=== PATIENT | male | born 1970 | race Two or more races ===

== ENCOUNTER 2023-01-29 08:14 | Inpatient (IN) | payer MEDICARE, MEDICAID ==
[~2023-01-29] VITALS: Ht 180.3 cm; Wt 178.6 kg
[2023-01-29] MEDS ORDERED: BUMETANIDE 0.25 MG/ML 4 ML VIAL IVP ONE (08:30)
[2023-01-29] MEDS ORDERED: NITROGLYCERIN 2% (1 GM=INCH) OINTMENT PACKET TP ONE (08:30)
[2023-01-29 08:54] LABS: BASOPHILS % (AUTO) 0.9 % (0.0-2.0); EOSINOPHILS % (AUTO) 1.4 % (1.0-6.0); HEMATOCRIT 37.4 % (41-53); HEMOGLOBIN 10.9 g/dL (13.5-17.5); LYMPHOCYTES # (AUTO) 0.9 K/uL (1.0-4.8); LYMPHOCYTES % (AUTO) 23.1 % (22.0-44.0); MEAN CORPUSCULAR HEMOGLOBIN 21.3 pg (26.0-34.0); MEAN CORPUSCULAR HGB CONC 29.1 G/dL (31.0-37.0); MEAN CORPUSCULAR VOLUME 73 fL (80-100); MONOCYTES # (AUTO) 0.2 K/uL (0.1-1.0); MONOCYTES % (AUTO) 6.2 % (2.0-9.0); NEUTROPHILS # (AUTO) 2.6 K/uL (1.8-7.7); NEUTROPHILS % (AUTO) 68.4 % (40.0-70.0); PLATELET COUNT (AUTO) 212 K/uL (150-450); RED BLOOD CELL COUNT(AUTO) 5.11 MIL/uL (4.50-5.90); RED CELL DISTRIBUTION WIDTH 20.2 % (11.5-14.5)
[2023-01-29 09:04] LABS: CALCIUM, TOTAL 9.2 mg/dL (8.8-10.5); CREATININE 2.74 mg/dL (0.60-1.30)
[2023-01-29 09:10] LABS: ALBUMIN 3.5 g/dL (3.4-5.0); BILIRUBIN,TOTAL 0.8 mg/dL (0.1-1.0); TOTAL PROTEIN, SERUM 7.7 g/dL (6.4-8.2)
[2023-01-29 09:30] LABS: INR 1.1 (0.9-1.1)
[2023-01-29] MEDS ORDERED: 0.9% SODIUM CHLORIDE 10 ML SYRINGE IVP PRN (09:45)
[2023-01-29] MEDS ORDERED: ACETAMINOPHEN 325 MG TABLET PO PRN (09:45)
[2023-01-29] MEDS ORDERED: ALBUTEROL SULFATE 2.5 MG/0.5 ML NEB SOLUTION NEB PRN (09:45)
[2023-01-29] MEDS ORDERED: IPRATROPIUM BROMIDE 0.5 MG/2.5 ML NEB SOLUTION NEB PRN (09:45)
[2023-01-29] MEDS ORDERED: BISACODYL 10 MG RECTAL RECTAL SUPPOSITORY PR PRN (09:45)
[2023-01-29] MEDS ORDERED: ONDANSETRON HCL 4 MG/2 ML VIAL IVP PRN (09:45)
[2023-01-29] MEDS ORDERED: ATOR20TA86 PO (09:58)
[2023-01-29] MEDS ORDERED: METO25XL PO (09:58)
[2023-01-29] MEDS ORDERED: POTA-79 PO (09:58)
[2023-01-29] MEDS ORDERED: AMIO200T68 PO (09:58)
[2023-01-29] MEDS ORDERED: SACU1TAB4 PO (09:58)
[2023-01-29] MEDS ORDERED: GABA-1181 PO (09:58)
[2023-01-29] MEDS ORDERED: FEBU40T PO (09:58)
[2023-01-29] MEDS ORDERED: EMPA10TA3 PO (09:58)
[2023-01-29] MEDS ORDERED: BUME1TAB34 PO (09:58)
[2023-01-29] MEDS ORDERED: FURO20 PO (09:58)
[2023-01-29] MEDS ORDERED: APIX5TAB PO (09:58)
[2023-01-29] MEDS ORDERED: NITROGLYCERIN 0.4 MG SUBLINGUAL TABLET #25 SL PRN (10:15)
[2023-01-29 10:22] LABS: HEMOGLOBIN A1C 6.8 % (3.8-5.6)
[2023-01-29 10:28] LABS: % IRON SATURATION 5.4 % (30-44)
[2023-01-29] MEDS: AMIODARONE HCL 200 MG TABLET PO SCH (10:45)
[2023-01-29] MEDS: APIXABAN 5 MG TABLET PO SCH ×2 (10:45→20:18)
[2023-01-29] MEDS: EMPAGLIFLOZIN 10 MG TABLET PO SCH (10:45)
[2023-01-29 10:52] LABS: APPEARANCE,URINE CLEAR (CLEAR); BILIRUBIN,URINE NEGATIVE (NEGATIVE); GLUCOSE, URINE (UA) NEGATIVE (NEGATIVE); KETONES,URINE NEGATIVE (NEGATIVE); LEUKOCYTE ESTERASE ,URINE NEGATIVE (NEGATIVE); NITRATE,URINE NEGATIVE (NEGATIVE); OCCULT BLOOD,URINE NEGATIVE (NEGATIVE); PH,URINE 5.5 (5.0-8.0); PROTEIN,URINE 100-200,SEE CONFIRM mg/dL (NEGATIVE); SPECIFIC GRAVITIY, URINE 1.012 (1.003-1.030); UROBILINOGEN,URINE <=1.0 mg/dL (<=1.0)
[2023-01-29 11:16] LABS: SULFOSALICYLIC ACID,URINE 3+ (Negative)
[2023-01-29 11:18] LABS: RBC,URINE None Seen /HPF (0-2); SQUAMOUS EPITHELIAL CELL,UR Rare /LPF (None Seen); WBC,URINE 0-2 /HPF (0-5)
[2023-01-29 11:19] LABS: BACTERIA,URINE Rare /HPF (None Seen)
[2023-01-29] MEDS ORDERED: BUMETANIDE 0.25 MG/ML 4 ML VIAL IVP SCH ×2 (16:00→21:00)
[2023-01-29 18:35] LABS: COVID AG,FIA SOURCE NASAL SWAB
[2023-01-29 18:59] VITALS: BP 129/72
[2023-01-29 19:36] VITALS: BP 138/85
[2023-01-29] MEDS: SACUBITRIL/VALSARTAN 24-26 MG TABLET PO SCH (20:17)
[2023-01-29] MEDS: HYDROCODONE/ACETAMINOPHEN 5-325 MG TABLET PO PRN (20:18)
[2023-01-29] MEDS: BUMETANIDE 0.25 MG/ML 4 ML VIAL IVP SCH (20:18)
[2023-01-29] MEDS: ATORVASTATIN CALCIUM 20 MG TABLET PO SCH (20:18)
[2023-01-29] MEDS ORDERED: FUROSEMIDE 40 MG/4 ML VIAL IVP SCH (21:00)
[2023-01-29] MEDS ORDERED: SODIUM CHLORIDE 0.9% 250 ML IV ONE (21:29)
[2023-01-29] MEDS: SOD FERRIC GLUC COMPLX/SUCROSE 125 MG in SODIUM CHLORIDE 0.9% 100 ML IV SCH (21:36)
[2023-01-30 00:08] VITALS: BP 152/88
[2023-01-30] MEDS: HYDROCODONE/ACETAMINOPHEN 5-325 MG TABLET PO PRN ×3 (01:04→22:58)
[2023-01-30 04:31] VITALS: BP 144/95
[2023-01-30] MEDS ORDERED: MORPHINE SULFATE 2 MG/ML SYRINGE IVP ONE (06:15)
[2023-01-30] MEDS ORDERED: PERFLUTREN PROTEIN-A MICROSPHERES 0.22 MG/ML 3 ML VIAL IVP ONE (08:30)
[2023-01-30] MEDS: AMIODARONE HCL 200 MG TABLET PO SCH (08:54)
[2023-01-30] MEDS: METOPROLOL SUCCINATE 25 MG ER TABLET PO SCH (08:54)
[2023-01-30] MEDS: APIXABAN 5 MG TABLET PO SCH ×2 (08:54→20:59)
[2023-01-30] MEDS: EMPAGLIFLOZIN 10 MG TABLET PO SCH (08:54)
[2023-01-30] MEDS: SACUBITRIL/VALSARTAN 24-26 MG TABLET PO SCH ×2 (08:54→20:59)
[2023-01-30] MEDS: BUMETANIDE 0.25 MG/ML 4 ML VIAL IVP SCH (08:54)
[2023-01-30 08:57] VITALS: BP 138/78
[2023-01-30 11:00] VITALS: BP 136/72
[2023-01-30 16:32] VITALS: BP 132/80
[2023-01-30] MEDS ORDERED: GABA-533 PO (17:14)
[2023-01-30] MEDS ORDERED: BUMETANIDE 10 MG in DEXTROSE 5%-WATER 60 ML IV SCH (17:15)
[2023-01-30 17:32] LABS: SODIUM,URINE RANDOM 48 mmol/l (20-110); UREA NITROGEN,URINE RANDOM 488 mg/dL (350-1000)
[2023-01-30 20:09] VITALS: BP 130/77
[2023-01-30] MEDS: SOD FERRIC GLUC COMPLX/SUCROSE 125 MG in SODIUM CHLORIDE 0.9% 100 ML IV SCH (20:59)
[2023-01-30] MEDS: ATORVASTATIN CALCIUM 20 MG TABLET PO SCH (21:00)
[2023-01-31 00:46] VITALS: BP 132/78
[2023-01-31 04:53] VITALS: BP 127/75
[2023-01-31 06:44] LABS: BASOPHILS % (AUTO) 0.7 % (0.0-2.0); EOSINOPHILS % (AUTO) 1.3 % (1.0-6.0); HEMATOCRIT 35.8 % (41-53); HEMOGLOBIN 10.7 g/dL (13.5-17.5); LYMPHOCYTES # (AUTO) 0.9 K/uL (1.0-4.8); MEAN CORPUSCULAR HEMOGLOBIN 21.6 pg (26.0-34.0); MEAN CORPUSCULAR HGB CONC 29.9 G/dL (31.0-37.0); MEAN CORPUSCULAR VOLUME 72 fL (80-100); MONOCYTES # (AUTO) 0.3 K/uL (0.1-1.0); MONOCYTES % (AUTO) 7.7 % (2.0-9.0); NEUTROPHILS # (AUTO) 2.9 K/uL (1.8-7.7); NEUTROPHILS % (AUTO) 69.3 % (40.0-70.0); PLATELET COUNT (AUTO) 198 K/uL (150-450); RED BLOOD CELL COUNT(AUTO) 4.97 MIL/uL (4.50-5.90); RED CELL DISTRIBUTION WIDTH 20.9 % (11.5-14.5)
[2023-01-31 07:23] LABS: ALBUMIN 3.2 g/dL (3.4-5.0); BILIRUBIN,TOTAL 1.1 mg/dL (0.1-1.0); CALCIUM, TOTAL 9.3 mg/dL (8.8-10.5); CHOL/HDL RATIO 3.4 (4.2-7.3); CREATININE 2.48 mg/dL (0.60-1.30); FREE T4 (FREE THYROXINE) 1.57 ng/dL (0.76-1.46); MAGNESIUM 2.2 mg/dL (1.80-2.40); PHOSPHORUS 4.5 mg/dL (2.5-4.9); POTASSIUM 3.4 mmol/L (3.5-5.1); THYROID STIMULATING HORMONE 0.72 uIU/mL (0.36-3.74); TOTAL PROTEIN, SERUM 7.1 g/dL (6.4-8.2)
[2023-01-31 09:00] VITALS: BP 132/72
[2023-01-31] MEDS: SACUBITRIL/VALSARTAN 24-26 MG TABLET PO SCH ×2 (09:28→20:19)
[2023-01-31] MEDS: HYDROCODONE/ACETAMINOPHEN 5-325 MG TABLET PO PRN ×2 (09:33→20:21)
[2023-01-31] MEDS: METOPROLOL SUCCINATE 25 MG ER TABLET PO SCH (09:34)
[2023-01-31] MEDS: AMIODARONE HCL 200 MG TABLET PO SCH (09:35)
[2023-01-31] MEDS: APIXABAN 5 MG TABLET PO SCH ×2 (09:36→20:19)
[2023-01-31] MEDS: EMPAGLIFLOZIN 25 MG TABLET PO SCH (09:36)
[2023-01-31] MEDS: SPIRONOLACTONE 25 MG TABLET PO SCH (10:03)
[2023-01-31] MEDS: POTASSIUM CHL 10 MEQ/WATER 50 ML IV SCH ×2 (10:48→12:21)
[2023-01-31 11:19] VITALS: BP 129/69
[2023-01-31 13:41] LABS: CALCIUM, TOTAL 9.2 mg/dL (8.8-10.5); CREATININE 2.27 mg/dL (0.60-1.30); POTASSIUM 3.8 mmol/L (3.5-5.1)
[2023-01-31] MEDS: BUMETANIDE 0.25 MG/ML 10 ML VIAL IVP SCH ×2 (15:59→23:27)
[2023-01-31 16:41] LABS: CREATININE,URINE RANDOM 44.4 mg/dL (30.0-125.0)
[2023-01-31 17:14] VITALS: BP 130/70
[2023-01-31] MEDS: ATORVASTATIN CALCIUM 20 MG TABLET PO SCH (20:19)
[2023-01-31] MEDS: SOD FERRIC GLUC COMPLX/SUCROSE 125 MG in SODIUM CHLORIDE 0.9% 100 ML IV SCH (20:20)
[2023-01-31 20:27] VITALS: BP 124/77
[2023-02-01] MEDS: HYDROCODONE/ACETAMINOPHEN 5-325 MG TABLET PO PRN ×4 (00:32→20:12)
[2023-02-01 00:34] VITALS: BP 125/74
[2023-02-01 05:21] VITALS: BP 104/64
[2023-02-01 07:45] VITALS: BP 149/80
[2023-02-01] MEDS: EMPAGLIFLOZIN 25 MG TABLET PO SCH (09:06)
[2023-02-01] MEDS: AMIODARONE HCL 200 MG TABLET PO SCH (09:06)
[2023-02-01] MEDS: APIXABAN 5 MG TABLET PO SCH ×2 (09:06→20:11)
[2023-02-01] MEDS: METOPROLOL SUCCINATE 25 MG ER TABLET PO SCH (09:07)
[2023-02-01] MEDS: SPIRONOLACTONE 25 MG TABLET PO SCH (09:07)
[2023-02-01] MEDS: SACUBITRIL/VALSARTAN 24-26 MG TABLET PO SCH ×2 (09:07→20:11)
[2023-02-01] MEDS: BUMETANIDE 0.25 MG/ML 10 ML VIAL IVP SCH ×2 (09:08→16:05)
[2023-02-01 11:17] VITALS: BP 110/63
[2023-02-01 12:53] LABS: BASOPHILS % (AUTO) 1.3 % (0.0-2.0); EOSINOPHILS % (AUTO) 1.3 % (1.0-6.0); HEMATOCRIT 38.8 % (41-53); HEMOGLOBIN 11.4 g/dL (13.5-17.5); LYMPHOCYTES # (AUTO) 1.3 K/uL (1.0-4.8); LYMPHOCYTES % (AUTO) 25.7 % (22.0-44.0); MEAN CORPUSCULAR HEMOGLOBIN 21.7 pg (26.0-34.0); MEAN CORPUSCULAR HGB CONC 29.4 G/dL (31.0-37.0); MEAN CORPUSCULAR VOLUME 74 fL (80-100); MONOCYTES # (AUTO) 0.3 K/uL (0.1-1.0); NEUTROPHILS # (AUTO) 3.2 K/uL (1.8-7.7); NEUTROPHILS % (AUTO) 64.7 % (40.0-70.0); PLATELET COUNT (AUTO) 201 K/uL (150-450); RED BLOOD CELL COUNT(AUTO) 5.26 MIL/uL (4.50-5.90); RED CELL DISTRIBUTION WIDTH 20.7 % (11.5-14.5)
[2023-02-01 13:12] LABS: CALCIUM, TOTAL 9.5 mg/dL (8.8-10.5); CREATININE 2.46 mg/dL (0.60-1.30); MAGNESIUM 2.6 mg/dL (1.80-2.40); PHOSPHORUS 4.3 mg/dL (2.5-4.9); POTASSIUM 3.8 mmol/L (3.5-5.1)
[2023-02-01 15:23] VITALS: BP 117/74
[2023-02-01] MEDS: ATORVASTATIN CALCIUM 20 MG TABLET PO SCH (20:11)
[2023-02-01] MEDS: GABAPENTIN 400 MG CAPSULE PO SCH (20:11)
[2023-02-01] MEDS: SOD FERRIC GLUC COMPLX/SUCROSE 125 MG in SODIUM CHLORIDE 0.9% 100 ML IV SCH (20:12)
[2023-02-01 21:30] VITALS: BP 119/66
[2023-02-02] MEDS: HYDROCODONE/ACETAMINOPHEN 5-325 MG TABLET PO PRN ×4 (00:14→21:13)
[2023-02-02] MEDS: BUMETANIDE 0.25 MG/ML 10 ML VIAL IVP SCH ×3 (00:14→21:12)
[2023-02-02 05:10] VITALS: BP 109/74
[2023-02-02 07:37] VITALS: BP 129/62
[2023-02-02 08:08] LABS: CALCIUM, TOTAL 9.6 mg/dL (8.8-10.5); CREATININE 2.58 mg/dL (0.60-1.30); POTASSIUM 3.5 mmol/L (3.5-5.1)
[2023-02-02] MEDS: EMPAGLIFLOZIN 25 MG TABLET PO SCH (09:23)
[2023-02-02] MEDS: METOPROLOL SUCCINATE 25 MG ER TABLET PO SCH (09:23)
[2023-02-02] MEDS: APIXABAN 5 MG TABLET PO SCH ×2 (09:23→21:12)
[2023-02-02] MEDS: SPIRONOLACTONE 25 MG TABLET PO SCH (09:23)
[2023-02-02] MEDS: FEBUXOSTAT 40 MG TABLET PO SCH (09:23)
[2023-02-02] MEDS: SACUBITRIL/VALSARTAN 24-26 MG TABLET PO SCH ×2 (09:23→21:12)
[2023-02-02] MEDS: AMIODARONE HCL 200 MG TABLET PO SCH (09:23)
[2023-02-02] MEDS: GABAPENTIN 400 MG CAPSULE PO SCH ×3 (09:23→21:12)
[2023-02-02 11:21] VITALS: BP 100/51
[2023-02-02 15:48] VITALS: BP 102/64
[2023-02-02] MEDS: DOCUSATE SODIUM 100 MG CAPSULE PO PRN (18:36)
[2023-02-02 19:50] VITALS: BP 102/64
[2023-02-02 20:31] LABS: APPEARANCE,URINE HAZY (CLEAR); BILIRUBIN,URINE NEGATIVE (NEGATIVE); GLUCOSE, URINE (UA) >=1000 mg/dL (NEGATIVE); KETONES,URINE NEGATIVE (NEGATIVE); LEUKOCYTE ESTERASE ,URINE MODERATE (NEGATIVE); NITRATE,URINE NEGATIVE (NEGATIVE); OCCULT BLOOD,URINE LARGE (NEGATIVE); PH,URINE 5.5 (5.0-8.0); PROTEIN,URINE 100-200,SEE CONFIRM mg/dL (NEGATIVE); SPECIFIC GRAVITIY, URINE 1.018 (1.003-1.030); UROBILINOGEN,URINE <=1.0 mg/dL (<=1.0)
[2023-02-02 20:46] LABS: SULFOSALICYLIC ACID,URINE 1+ (Negative)
[2023-02-02 20:47] LABS: RBC,URINE 51-100 /HPF (0-2)
[2023-02-02 20:48] LABS: BACTERIA,URINE None Seen /HPF (None Seen); SQUAMOUS EPITHELIAL CELL,UR None Seen /LPF (None Seen)
[2023-02-02] MEDS: SOD FERRIC GLUC COMPLX/SUCROSE 125 MG in SODIUM CHLORIDE 0.9% 100 ML IV SCH (21:12)
[2023-02-02] MEDS: ATORVASTATIN CALCIUM 20 MG TABLET PO SCH (21:12)
[2023-02-03 00:07] VITALS: BP 126/72
[2023-02-03] MEDS: HYDROCODONE/ACETAMINOPHEN 5-325 MG TABLET PO PRN ×5 (01:18→22:58)
[2023-02-03 04:00] VITALS: BP 149/64
[2023-02-03 07:05] VITALS: BP 101/70
[2023-02-03 07:35] LABS: CALCIUM, TOTAL 9.8 mg/dL (8.8-10.5); CREATININE 2.54 mg/dL (0.60-1.30); MAGNESIUM 2.4 mg/dL (1.80-2.40); PHOSPHORUS 5.1 mg/dL (2.5-4.9); POTASSIUM 3.7 mmol/L (3.5-5.1)
[2023-02-03] MEDS: APIXABAN 5 MG TABLET PO SCH ×2 (08:28→22:57)
[2023-02-03] MEDS: FEBUXOSTAT 40 MG TABLET PO SCH (08:28)
[2023-02-03] MEDS: SACUBITRIL/VALSARTAN 24-26 MG TABLET PO SCH ×2 (08:28→22:57)
[2023-02-03] MEDS: GABAPENTIN 400 MG CAPSULE PO SCH ×3 (08:29→22:57)
[2023-02-03] MEDS: EMPAGLIFLOZIN 25 MG TABLET PO SCH (08:29)
[2023-02-03] MEDS: METOPROLOL SUCCINATE 25 MG ER TABLET PO SCH (08:29)
[2023-02-03] MEDS: SPIRONOLACTONE 25 MG TABLET PO SCH (08:29)
[2023-02-03] MEDS: BUMETANIDE 0.25 MG/ML 10 ML VIAL IVP SCH ×2 (08:29→21:09)
[2023-02-03] MEDS: AMIODARONE HCL 200 MG TABLET PO SCH (08:29)
[2023-02-03 11:49] VITALS: BP 120/78
[2023-02-03 15:30] VITALS: BP 118/66
[2023-02-03 20:06] VITALS: BP 122/65
[2023-02-03] MEDS: SOD FERRIC GLUC COMPLX/SUCROSE 125 MG in SODIUM CHLORIDE 0.9% 100 ML IV SCH (21:08)
[2023-02-03] MEDS: CefTRIAXone 1 GM/DEXTROSE 50 ML IV SCH (22:57)
[2023-02-03] MEDS: ATORVASTATIN CALCIUM 20 MG TABLET PO SCH (22:58)
[2023-02-03] MEDS: DOXYCYCLINE HYCLATE 100 MG TABLET PO SCH (22:58)
[2023-02-04 00:09] VITALS: BP 125/68
[2023-02-04 05:37] VITALS: BP 107/69
[2023-02-04 06:06] LABS: ALBUMIN URINE (ELP) 53.9 %
[2023-02-04 07:28] LABS: CALCIUM, TOTAL 9.6 mg/dL (8.8-10.5); CREATININE 2.63 mg/dL (0.60-1.30); MAGNESIUM 2.4 mg/dL (1.80-2.40); PHOSPHORUS 5.3 mg/dL (2.5-4.9); POTASSIUM 4.1 mmol/L (3.5-5.1)
[2023-02-04 07:35] VITALS: BP 114/68
[2023-02-04] MEDS: SACUBITRIL/VALSARTAN 24-26 MG TABLET PO SCH ×2 (08:44→20:38)
[2023-02-04] MEDS: APIXABAN 5 MG TABLET PO SCH ×2 (08:44→20:38)
[2023-02-04] MEDS: SPIRONOLACTONE 25 MG TABLET PO SCH (08:44)
[2023-02-04] MEDS: METOPROLOL SUCCINATE 25 MG ER TABLET PO SCH (08:44)
[2023-02-04] MEDS: FEBUXOSTAT 40 MG TABLET PO SCH (08:44)
[2023-02-04] MEDS: AMIODARONE HCL 200 MG TABLET PO SCH (08:44)
[2023-02-04] MEDS: GABAPENTIN 400 MG CAPSULE PO SCH ×3 (08:44→20:39)
[2023-02-04] MEDS: DOXYCYCLINE HYCLATE 100 MG TABLET PO SCH ×2 (08:44→20:38)
[2023-02-04] MEDS: EMPAGLIFLOZIN 25 MG TABLET PO SCH (08:45)
[2023-02-04] MEDS: HYDROCODONE/ACETAMINOPHEN 5-325 MG TABLET PO PRN ×3 (08:45→20:39)
[2023-02-04] MEDS ORDERED: BUMETANIDE 0.25 MG/ML 10 ML VIAL IVP SCH (09:00)
[2023-02-04] MEDS: ALBUMIN HUMAN 25%-25GM/100ML 100 ML IV SCH ×3 (10:55→20:40)
[2023-02-04 11:40] VITALS: BP 129/79
[2023-02-04 15:52] VITALS: BP 125/73
[2023-02-04 19:22] VITALS: BP 113/67
[2023-02-04] MEDS: ATORVASTATIN CALCIUM 20 MG TABLET PO SCH (20:38)
[2023-02-04] MEDS: CefTRIAXone 1 GM/DEXTROSE 50 ML IV SCH (20:39)
[2023-02-04] MEDS: SOD FERRIC GLUC COMPLX/SUCROSE 125 MG in SODIUM CHLORIDE 0.9% 100 ML IV SCH (22:22)
[2023-02-05 00:12] VITALS: BP 105/69
[2023-02-05] MEDS: HYDROCODONE/ACETAMINOPHEN 5-325 MG TABLET PO PRN ×5 (00:42→22:20)
[2023-02-05] MEDS: ALBUMIN HUMAN 25%-25GM/100ML 100 ML IV SCH ×4 (03:20→22:11)
[2023-02-05 03:57] VITALS: BP 131/71
[2023-02-05 07:14] LABS: BASOPHILS % (AUTO) 0.6 % (0.0-2.0); EOSINOPHILS % (AUTO) 1.9 % (1.0-6.0); HEMATOCRIT 37.1 % (41-53); HEMOGLOBIN 11.4 g/dL (13.5-17.5); LYMPHOCYTES # (AUTO) 1.2 K/uL (1.0-4.8); LYMPHOCYTES % (AUTO) 25.9 % (22.0-44.0); MEAN CORPUSCULAR HEMOGLOBIN 22.8 pg (26.0-34.0); MEAN CORPUSCULAR HGB CONC 30.7 G/dL (31.0-37.0); MEAN CORPUSCULAR VOLUME 74 fL (80-100); MONOCYTES # (AUTO) 0.4 K/uL (0.1-1.0); MONOCYTES % (AUTO) 8.5 % (2.0-9.0); NEUTROPHILS % (AUTO) 63.1 % (40.0-70.0); PLATELET COUNT (AUTO) 161 K/uL (150-450); RED CELL DISTRIBUTION WIDTH 21.1 % (11.5-14.5)
[2023-02-05 07:28] LABS: CALCIUM, TOTAL 9.7 mg/dL (8.8-10.5); CREATININE 2.71 mg/dL (0.60-1.30); MAGNESIUM 2.6 mg/dL (1.80-2.40); POTASSIUM 3.9 mmol/L (3.5-5.1)
[2023-02-05 07:49] VITALS: BP 122/70
[2023-02-05] MEDS: SPIRONOLACTONE 25 MG TABLET PO SCH (08:34)
[2023-02-05] MEDS: APIXABAN 5 MG TABLET PO SCH ×2 (08:34→21:18)
[2023-02-05] MEDS: SACUBITRIL/VALSARTAN 24-26 MG TABLET PO SCH ×2 (08:34→21:16)
[2023-02-05] MEDS: GABAPENTIN 400 MG CAPSULE PO SCH ×3 (08:35→21:17)
[2023-02-05] MEDS: AMIODARONE HCL 200 MG TABLET PO SCH (08:35)
[2023-02-05] MEDS: EMPAGLIFLOZIN 25 MG TABLET PO SCH (08:35)
[2023-02-05] MEDS: METOPROLOL SUCCINATE 25 MG ER TABLET PO SCH (08:36)
[2023-02-05] MEDS: FEBUXOSTAT 40 MG TABLET PO SCH (08:36)
[2023-02-05] MEDS: DOXYCYCLINE HYCLATE 100 MG TABLET PO SCH ×2 (08:36→21:16)
[2023-02-05 11:40] VITALS: BP 117/72
[2023-02-05] MEDS ORDERED: SODIUM CL IRRIG SOLN BOTTLE 250 ML IRRIG ONE (11:50)
[2023-02-05] MEDS ORDERED: SODIUM CHLORIDE 0.9% 250 ML IV ONE ×2 (15:39→21:23)
[2023-02-05 16:16] VITALS: BP 126/76
[2023-02-05 21:08] VITALS: BP 109/71
[2023-02-05] MEDS: NYSTATIN 15 GM POWDER BOTTLE TP SCH (21:17)
[2023-02-05] MEDS: ATORVASTATIN CALCIUM 20 MG TABLET PO SCH (21:18)
[2023-02-05] MEDS: CefTRIAXone 1 GM/DEXTROSE 50 ML IV SCH (21:19)
[2023-02-05] MEDS: SOD FERRIC GLUC COMPLX/SUCROSE 125 MG in SODIUM CHLORIDE 0.9% 100 ML IV SCH (23:30)
[2023-02-06] VITALS (7 sets, daily range): BP systolic 106–123; BP diastolic 62–74
[2023-02-06] MEDS: ALBUMIN HUMAN 25%-25GM/100ML 100 ML IV SCH (03:41)
[2023-02-06] MEDS: HYDROCODONE/ACETAMINOPHEN 5-325 MG TABLET PO PRN ×4 (05:15→23:23)
[2023-02-06] MEDS: AMIODARONE HCL 200 MG TABLET PO SCH (08:26)
[2023-02-06] MEDS: FEBUXOSTAT 40 MG TABLET PO SCH (08:29)
[2023-02-06] MEDS: SACUBITRIL/VALSARTAN 24-26 MG TABLET PO SCH ×2 (08:29→20:39)
[2023-02-06] MEDS: SPIRONOLACTONE 25 MG TABLET PO SCH (08:29)
[2023-02-06] MEDS: DOCUSATE SODIUM 100 MG CAPSULE PO PRN (08:30)
[2023-02-06] MEDS: EMPAGLIFLOZIN 25 MG TABLET PO SCH (08:30)
[2023-02-06] MEDS: DOXYCYCLINE HYCLATE 100 MG TABLET PO SCH ×2 (08:30→20:39)
[2023-02-06] MEDS: METOPROLOL SUCCINATE 25 MG ER TABLET PO SCH (08:30)
[2023-02-06] MEDS: APIXABAN 5 MG TABLET PO SCH ×2 (08:30→20:39)
[2023-02-06] MEDS: NYSTATIN 15 GM POWDER BOTTLE TP SCH ×2 (08:35→20:39)
[2023-02-06] MEDS: GABAPENTIN 400 MG CAPSULE PO SCH ×3 (08:59→20:39)
[2023-02-06 11:43] LABS: BASOPHILS % (AUTO) 0.7 % (0.0-2.0); EOSINOPHILS % (AUTO) 2.8 % (1.0-6.0); HEMATOCRIT 34.3 % (41-53); HEMOGLOBIN 10.3 g/dL (13.5-17.5); LYMPHOCYTES # (AUTO) 1.3 K/uL (1.0-4.8); LYMPHOCYTES % (AUTO) 29.7 % (22.0-44.0); MEAN CORPUSCULAR HEMOGLOBIN 22.6 pg (26.0-34.0); MEAN CORPUSCULAR HGB CONC 30.1 G/dL (31.0-37.0); MEAN CORPUSCULAR VOLUME 75 fL (80-100); MONOCYTES # (AUTO) 0.3 K/uL (0.1-1.0); MONOCYTES % (AUTO) 6.5 % (2.0-9.0); NEUTROPHILS # (AUTO) 2.7 K/uL (1.8-7.7); NEUTROPHILS % (AUTO) 60.3 % (40.0-70.0); PLATELET COUNT (AUTO) 138 K/uL (150-450); RED BLOOD CELL COUNT(AUTO) 4.57 MIL/uL (4.50-5.90); RED CELL DISTRIBUTION WIDTH 21.8 % (11.5-14.5)
[2023-02-06] MEDS ORDERED: SODIUM CHLORIDE 0.9% 250 ML IV ONE (12:36)
[2023-02-06 13:16] LABS: CALCIUM, TOTAL 9.9 mg/dL (8.8-10.5); CREATININE 3.08 mg/dL (0.60-1.30); POTASSIUM 4.2 mmol/L (3.5-5.1)
[2023-02-06 13:22] LABS: ALBUMIN 4.6 g/dL (3.4-5.0); BILIRUBIN,TOTAL 0.8 mg/dL (0.1-1.0); MAGNESIUM 2.8 mg/dL (1.80-2.40); PHOSPHORUS 5.4 mg/dL (2.5-4.9); TOTAL PROTEIN, SERUM 8.3 g/dL (6.4-8.2)
[2023-02-06] MEDS: CefTRIAXone 1 GM/DEXTROSE 50 ML IV SCH (20:38)
[2023-02-06] MEDS: ATORVASTATIN CALCIUM 20 MG TABLET PO SCH (20:39)
[2023-02-06] MEDS: SOD FERRIC GLUC COMPLX/SUCROSE 125 MG in SODIUM CHLORIDE 0.9% 100 ML IV SCH (23:24)
[2023-02-07 05:31] VITALS: BP 123/75
[2023-02-07] MEDS: HYDROCODONE/ACETAMINOPHEN 5-325 MG TABLET PO PRN ×3 (06:44→20:54)
[2023-02-07 07:29] LABS: BASOPHILS % (AUTO) 0.6 % (0.0-2.0); EOSINOPHILS % (AUTO) 1.9 % (1.0-6.0); HEMATOCRIT 34.6 % (41-53); HEMOGLOBIN 10.4 g/dL (13.5-17.5); LYMPHOCYTES # (AUTO) 1.3 K/uL (1.0-4.8); LYMPHOCYTES % (AUTO) 27.6 % (22.0-44.0); MEAN CORPUSCULAR HEMOGLOBIN 22.5 pg (26.0-34.0); MEAN CORPUSCULAR VOLUME 75 fL (80-100); MONOCYTES # (AUTO) 0.3 K/uL (0.1-1.0); MONOCYTES % (AUTO) 7.5 % (2.0-9.0); NEUTROPHILS # (AUTO) 2.8 K/uL (1.8-7.7); NEUTROPHILS % (AUTO) 62.4 % (40.0-70.0); PLATELET COUNT (AUTO) 142 K/uL (150-450); RED BLOOD CELL COUNT(AUTO) 4.61 MIL/uL (4.50-5.90); RED CELL DISTRIBUTION WIDTH 21.5 % (11.5-14.5)
[2023-02-07 07:48] LABS: ALBUMIN 4.4 g/dL (3.4-5.0); BILIRUBIN,TOTAL 0.8 mg/dL (0.1-1.0); CALCIUM, TOTAL 9.8 mg/dL (8.8-10.5); CREATININE 3.3 mg/dL (0.60-1.30); POTASSIUM 4.2 mmol/L (3.5-5.1); TOTAL PROTEIN, SERUM 8.1 g/dL (6.4-8.2)
[2023-02-07 08:00] VITALS: BP 138/65
[2023-02-07] MEDS: DOXYCYCLINE HYCLATE 100 MG TABLET PO SCH ×2 (09:12→20:53)
[2023-02-07] MEDS: METOPROLOL SUCCINATE 25 MG ER TABLET PO SCH (09:12)
[2023-02-07] MEDS: SPIRONOLACTONE 25 MG TABLET PO SCH (09:12)
[2023-02-07] MEDS: GABAPENTIN 400 MG CAPSULE PO SCH ×2 (09:12→15:50)
[2023-02-07] MEDS: AMIODARONE HCL 200 MG TABLET PO SCH (09:12)
[2023-02-07] MEDS: EMPAGLIFLOZIN 25 MG TABLET PO SCH (09:12)
[2023-02-07] MEDS: SACUBITRIL/VALSARTAN 24-26 MG TABLET PO SCH ×2 (09:12→20:53)
[2023-02-07] MEDS: APIXABAN 5 MG TABLET PO SCH ×2 (09:12→20:53)
[2023-02-07] MEDS: FEBUXOSTAT 40 MG TABLET PO SCH (09:12)
[2023-02-07] MEDS: NYSTATIN 15 GM POWDER BOTTLE TP SCH ×2 (09:15→21:00)
[2023-02-07 11:05] VITALS: BP 120/77
[2023-02-07 16:04] VITALS: BP 129/56
[2023-02-07 20:00] VITALS: BP 102/64
[2023-02-07] MEDS: BUMETANIDE 0.25 MG/ML 4 ML VIAL IVP SCH (20:52)
[2023-02-07] MEDS: CefTRIAXone 1 GM/DEXTROSE 50 ML IV SCH (20:52)
[2023-02-07] MEDS: ATORVASTATIN CALCIUM 20 MG TABLET PO SCH (20:53)
[2023-02-07] MEDS: GABAPENTIN 300 MG CAPSULE PO SCH (20:54)
[2023-02-07] MEDS: SOD FERRIC GLUC COMPLX/SUCROSE 125 MG in SODIUM CHLORIDE 0.9% 100 ML IV SCH (23:07)
[2023-02-08] VITALS: BP 105/63
[2023-02-08] MEDS: HYDROCODONE/ACETAMINOPHEN 5-325 MG TABLET PO PRN ×4 (04:23→20:17)
[2023-02-08 04:57] VITALS: BP 124/64
[2023-02-08 06:46] LABS: BASOPHILS % (AUTO) 0.7 % (0.0-2.0); EOSINOPHILS % (AUTO) 1.3 % (1.0-6.0); HEMATOCRIT 32.7 % (41-53); LYMPHOCYTES # (AUTO) 1.4 K/uL (1.0-4.8); LYMPHOCYTES % (AUTO) 23.6 % (22.0-44.0); MEAN CORPUSCULAR HEMOGLOBIN 23.2 pg (26.0-34.0); MEAN CORPUSCULAR HGB CONC 30.5 G/dL (31.0-37.0); MEAN CORPUSCULAR VOLUME 76 fL (80-100); MONOCYTES # (AUTO) 0.7 K/uL (0.1-1.0); NEUTROPHILS # (AUTO) 3.6 K/uL (1.8-7.7); NEUTROPHILS % (AUTO) 62.4 % (40.0-70.0); PLATELET COUNT (AUTO) 137 K/uL (150-450); RED BLOOD CELL COUNT(AUTO) 4.31 MIL/uL (4.50-5.90); RED CELL DISTRIBUTION WIDTH 21.9 % (11.5-14.5)
[2023-02-08 07:04] LABS: ALBUMIN 4.2 g/dL (3.4-5.0); CALCIUM, TOTAL 9.7 mg/dL (8.8-10.5); CREATININE 3.44 mg/dL (0.60-1.30); POTASSIUM 4.8 mmol/L (3.5-5.1); TOTAL PROTEIN, SERUM 7.9 g/dL (6.4-8.2)
[2023-02-08 07:52] LABS: MAGNESIUM 2.8 mg/dL (1.80-2.40); PHOSPHORUS 5.6 mg/dL (2.5-4.9)
[2023-02-08 08:00] VITALS: BP 123/65
[2023-02-08] MEDS: METOPROLOL SUCCINATE 25 MG ER TABLET PO SCH (08:54)
[2023-02-08] MEDS: AMIODARONE HCL 200 MG TABLET PO SCH (08:55)
[2023-02-08] MEDS: SACUBITRIL/VALSARTAN 24-26 MG TABLET PO SCH ×2 (08:55→20:45)
[2023-02-08] MEDS: DOXYCYCLINE HYCLATE 100 MG TABLET PO SCH ×2 (08:55→20:45)
[2023-02-08] MEDS: EMPAGLIFLOZIN 25 MG TABLET PO SCH (08:55)
[2023-02-08] MEDS: APIXABAN 5 MG TABLET PO SCH ×2 (08:55→20:45)
[2023-02-08] MEDS: SPIRONOLACTONE 25 MG TABLET PO SCH (08:56)
[2023-02-08] MEDS: GABAPENTIN 300 MG CAPSULE PO SCH ×2 (08:56→20:45)
[2023-02-08] MEDS: FEBUXOSTAT 40 MG TABLET PO SCH (08:56)
[2023-02-08] MEDS: BUMETANIDE 0.25 MG/ML 4 ML VIAL IVP SCH ×3 (08:57→20:45)
[2023-02-08] MEDS: NYSTATIN 15 GM POWDER BOTTLE TP SCH ×2 (08:57→20:46)
[2023-02-08 11:38] VITALS: BP 101/69
[2023-02-08 16:00] VITALS: BP 111/66
[2023-02-08 20:00] VITALS: BP 115/68
[2023-02-08] MEDS: CefTRIAXone 1 GM/DEXTROSE 50 ML IV SCH (20:45)
[2023-02-08] MEDS: ATORVASTATIN CALCIUM 20 MG TABLET PO SCH (20:46)
[2023-02-09] VITALS: BP 117/67
[2023-02-09] MEDS: SOD FERRIC GLUC COMPLX/SUCROSE 125 MG in SODIUM CHLORIDE 0.9% 100 ML IV SCH ×2 (00:31→23:51)
[2023-02-09] MEDS: HYDROCODONE/ACETAMINOPHEN 5-325 MG TABLET PO PRN ×4 (00:32→20:07)
[2023-02-09 04:00] VITALS: BP 126/62
[2023-02-09] MEDS ORDERED: SODIUM CHLORIDE 0.9% 500 ML IV ONE (05:53)
[2023-02-09 08:10] VITALS: BP 123/77
[2023-02-09] MEDS: NYSTATIN 15 GM POWDER BOTTLE TP SCH ×2 (09:00→20:09)
[2023-02-09] MEDS: SPIRONOLACTONE 25 MG TABLET PO SCH (09:36)
[2023-02-09] MEDS: BUMETANIDE 0.25 MG/ML 4 ML VIAL IVP SCH ×3 (09:36→20:07)
[2023-02-09] MEDS: APIXABAN 5 MG TABLET PO SCH ×2 (09:36→20:07)
[2023-02-09] MEDS: SACUBITRIL/VALSARTAN 24-26 MG TABLET PO SCH ×2 (09:37→20:07)
[2023-02-09] MEDS: EMPAGLIFLOZIN 25 MG TABLET PO SCH (09:37)
[2023-02-09] MEDS: GABAPENTIN 300 MG CAPSULE PO SCH ×2 (09:38→20:07)
[2023-02-09] MEDS: AMIODARONE HCL 200 MG TABLET PO SCH (09:38)
[2023-02-09] MEDS: FEBUXOSTAT 40 MG TABLET PO SCH (09:39)
[2023-02-09] MEDS: DOXYCYCLINE HYCLATE 100 MG TABLET PO SCH ×2 (09:39→20:07)
[2023-02-09] MEDS: METOPROLOL SUCCINATE 25 MG ER TABLET PO SCH (09:39)
[2023-02-09] MEDS ORDERED: METOLAZONE 2.5 MG TABLET PO ONE (10:15)
[2023-02-09 11:10] VITALS: BP 127/85
[2023-02-09 16:00] VITALS: BP 112/66
[2023-02-09 20:00] VITALS: BP 117/88
[2023-02-09] MEDS: CefTRIAXone 1 GM/DEXTROSE 50 ML IV SCH (20:06)
[2023-02-09] MEDS: ATORVASTATIN CALCIUM 20 MG TABLET PO SCH (20:07)
[2023-02-10] MEDS: HYDROCODONE/ACETAMINOPHEN 5-325 MG TABLET PO PRN ×4 (02:48→20:13)
[2023-02-10 04:00] VITALS: BP 111/76
[2023-02-10 07:33] VITALS: BP 106/65
[2023-02-10] MEDS: FEBUXOSTAT 40 MG TABLET PO SCH (08:18)
[2023-02-10] MEDS: DOXYCYCLINE HYCLATE 100 MG TABLET PO SCH ×2 (08:18→20:11)
[2023-02-10] MEDS: SACUBITRIL/VALSARTAN 24-26 MG TABLET PO SCH ×2 (08:19→20:11)
[2023-02-10] MEDS: AMIODARONE HCL 200 MG TABLET PO SCH (08:19)
[2023-02-10] MEDS: BUMETANIDE 0.25 MG/ML 4 ML VIAL IVP SCH ×3 (08:19→20:12)
[2023-02-10] MEDS: GABAPENTIN 300 MG CAPSULE PO SCH ×2 (08:19→20:11)
[2023-02-10] MEDS: EMPAGLIFLOZIN 25 MG TABLET PO SCH (08:19)
[2023-02-10] MEDS: METOPROLOL SUCCINATE 25 MG ER TABLET PO SCH (08:19)
[2023-02-10] MEDS: APIXABAN 5 MG TABLET PO SCH ×2 (08:19→20:11)
[2023-02-10] MEDS: NYSTATIN 15 GM POWDER BOTTLE TP SCH ×2 (09:00→20:11)
[2023-02-10 11:52] VITALS: BP 109/74
[2023-02-10] MEDS ORDERED: METOLAZONE 5 MG TABLET PO ONE (12:15)
[2023-02-10 12:31] LABS: GLUCOMETER DEV NAME(LOC) 5N.1C; GLUCOSE,POINT OF CARE 106 MG/DL (70-110)
[2023-02-10 16:20] VITALS: BP 123/60
[2023-02-10 20:10] VITALS: BP 112/75
[2023-02-10] MEDS: ATORVASTATIN CALCIUM 20 MG TABLET PO SCH (20:11)
[2023-02-10] MEDS: CefTRIAXone 1 GM/DEXTROSE 50 ML IV SCH (20:11)
[2023-02-10] MEDS: SOD FERRIC GLUC COMPLX/SUCROSE 125 MG in SODIUM CHLORIDE 0.9% 100 ML IV SCH (23:32)
[2023-02-11 00:08] VITALS: BP 101/61
[2023-02-11] MEDS: HYDROCODONE/ACETAMINOPHEN 5-325 MG TABLET PO PRN (00:29)
[2023-02-11 04:10] VITALS: BP 108/66
[2023-02-11 08:19] VITALS: BP 102/60
[2023-02-11] MEDS ORDERED: METOLAZONE 2.5 MG TABLET PO SCH (08:30)
[2023-02-11] MEDS: GABAPENTIN 300 MG CAPSULE PO SCH ×2 (08:45→20:04)
[2023-02-11] MEDS: METOPROLOL SUCCINATE 25 MG ER TABLET PO SCH (08:45)
[2023-02-11] MEDS: FEBUXOSTAT 40 MG TABLET PO SCH (08:45)
[2023-02-11] MEDS: APIXABAN 5 MG TABLET PO SCH ×2 (08:46→20:04)
[2023-02-11] MEDS: DOXYCYCLINE HYCLATE 100 MG TABLET PO SCH ×2 (08:46→20:04)
[2023-02-11] MEDS: AMIODARONE HCL 200 MG TABLET PO SCH (08:46)
[2023-02-11] MEDS: SACUBITRIL/VALSARTAN 24-26 MG TABLET PO SCH ×2 (08:46→20:04)
[2023-02-11] MEDS: BUMETANIDE 0.25 MG/ML 4 ML VIAL IVP SCH ×2 (08:46→15:15)
[2023-02-11] MEDS: EMPAGLIFLOZIN 25 MG TABLET PO SCH (08:46)
[2023-02-11] MEDS: NYSTATIN 15 GM POWDER BOTTLE TP SCH ×2 (08:50→20:04)
[2023-02-11 09:26] LABS: EOSINOPHILS % (AUTO) 1.5 % (1.0-6.0); HEMATOCRIT 34.9 % (41-53); HEMOGLOBIN 10.4 g/dL (13.5-17.5); LYMPHOCYTES % (AUTO) 23.4 % (22.0-44.0); MEAN CORPUSCULAR HEMOGLOBIN 23.2 pg (26.0-34.0); MEAN CORPUSCULAR VOLUME 77 fL (80-100); MONOCYTES # (AUTO) 0.2 K/uL (0.1-1.0); MONOCYTES % (AUTO) 3.7 % (2.0-9.0); NEUTROPHILS # (AUTO) 3.1 K/uL (1.8-7.7); NEUTROPHILS % (AUTO) 70.4 % (40.0-70.0); PLATELET COUNT (AUTO) 153 K/uL (150-450); RED BLOOD CELL COUNT(AUTO) 4.51 MIL/uL (4.50-5.90); RED CELL DISTRIBUTION WIDTH 23.2 % (11.5-14.5)
[2023-02-11 09:34] LABS: CALCIUM, TOTAL 9.8 mg/dL (8.8-10.5); CREATININE 3.98 mg/dL (0.60-1.30); POTASSIUM 4.6 mmol/L (3.5-5.1)
[2023-02-11] MEDS ORDERED: HYDROmorphone HCL 2 MG/ML SYRINGE IM ONE (10:15)
[2023-02-11] MEDS ORDERED: HYDROmorphone HCL 2 MG/ML SYRINGE IVP ONE (11:30)
[2023-02-11 12:00] VITALS: BP 100/64
[2023-02-11 16:00] VITALS: BP 110/58
[2023-02-11 20:04] VITALS: BP 105/54
[2023-02-11] MEDS: CefTRIAXone 1 GM/DEXTROSE 50 ML IV SCH (20:04)
[2023-02-11] MEDS: ATORVASTATIN CALCIUM 20 MG TABLET PO SCH (20:04)
[2023-02-11] MEDS: SOD FERRIC GLUC COMPLX/SUCROSE 125 MG in SODIUM CHLORIDE 0.9% 100 ML IV SCH (23:06)
[2023-02-12] VITALS (7 sets, daily range): BP systolic 99–124; BP diastolic 50–81
[2023-02-12] MEDS: HYDROCODONE/ACETAMINOPHEN 5-325 MG TABLET PO PRN ×4 (00:13→21:32)
[2023-02-12 08:31] LABS: HEMOGLOBIN 11.2 g/dL (13.5-17.5); MEAN CORPUSCULAR HEMOGLOBIN 23.7 pg (26.0-34.0); MEAN CORPUSCULAR HGB CONC 30.3 G/dL (31.0-37.0); MEAN CORPUSCULAR VOLUME 78 fL (80-100); PLATELET COUNT (AUTO) 160 K/uL (150-450); RED BLOOD CELL COUNT(AUTO) 4.72 MIL/uL (4.50-5.90); RED CELL DISTRIBUTION WIDTH 23.6 % (11.5-14.5)
[2023-02-12 08:44] LABS: CALCIUM, TOTAL 9.9 mg/dL (8.8-10.5); CREATININE 3.9 mg/dL (0.60-1.30); MAGNESIUM 2.7 mg/dL (1.80-2.40); PHOSPHORUS 6.1 mg/dL (2.5-4.9); POTASSIUM 4.6 mmol/L (3.5-5.1)
[2023-02-12 09:45] LABS: BAND NEUTROPHILS % (MANUAL) 0 % (0-5)
[2023-02-12 09:46] LABS: BASOPHILS % (MANUAL) 1 % (0-2); EOSINOPHILS % (MANUAL) 1 % (1-6); LYMPHOCYTES % (MANUAL) 24 % (22-44); MONOCYTES % (MANUAL) 5 % (2-9); SEGMENTED NEUTROPHILS % 69 % (40-70)
[2023-02-12] MEDS: EMPAGLIFLOZIN 25 MG TABLET PO SCH (10:51)
[2023-02-12] MEDS: GABAPENTIN 300 MG CAPSULE PO SCH ×2 (10:51→21:30)
[2023-02-12] MEDS: DOXYCYCLINE HYCLATE 100 MG TABLET PO SCH ×2 (10:51→21:30)
[2023-02-12] MEDS: SACUBITRIL/VALSARTAN 24-26 MG TABLET PO SCH ×2 (10:51→21:30)
[2023-02-12] MEDS: METOPROLOL SUCCINATE 25 MG ER TABLET PO SCH (10:51)
[2023-02-12] MEDS: APIXABAN 5 MG TABLET PO SCH ×2 (10:51→21:30)
[2023-02-12] MEDS: AMIODARONE HCL 200 MG TABLET PO SCH (10:51)
[2023-02-12] MEDS: FEBUXOSTAT 40 MG TABLET PO SCH (10:51)
[2023-02-12] MEDS: NYSTATIN 15 GM POWDER BOTTLE TP SCH ×2 (10:51→21:30)
[2023-02-12] MEDS: BUMETANIDE 0.25 MG/ML 4 ML VIAL IVP SCH ×2 (15:21→21:32)
[2023-02-12] MEDS: ATORVASTATIN CALCIUM 20 MG TABLET PO SCH (21:30)
[2023-02-12] MEDS: CefTRIAXone 1 GM/DEXTROSE 50 ML IV SCH (21:31)
[2023-02-12] MEDS: SOD FERRIC GLUC COMPLX/SUCROSE 125 MG in SODIUM CHLORIDE 0.9% 100 ML IV SCH (23:51)
[2023-02-13] VITALS (7 sets, daily range): BP systolic 98–111; BP diastolic 53–74
[2023-02-13] MEDS: HYDROCODONE/ACETAMINOPHEN 5-325 MG TABLET PO PRN ×4 (01:41→21:55)
[2023-02-13 07:11] LABS: CALCIUM, TOTAL 9.7 mg/dL (8.8-10.5); CREATININE 3.63 mg/dL (0.60-1.30); POTASSIUM 4.9 mmol/L (3.5-5.1)
[2023-02-13] MEDS: GABAPENTIN 300 MG CAPSULE PO SCH (08:29)
[2023-02-13] MEDS: FEBUXOSTAT 40 MG TABLET PO SCH (08:30)
[2023-02-13] MEDS: EMPAGLIFLOZIN 25 MG TABLET PO SCH (08:30)
[2023-02-13] MEDS: METOPROLOL SUCCINATE 25 MG ER TABLET PO SCH (08:30)
[2023-02-13] MEDS: DOXYCYCLINE HYCLATE 100 MG TABLET PO SCH ×2 (08:30→21:54)
[2023-02-13] MEDS: APIXABAN 5 MG TABLET PO SCH ×2 (08:30→21:54)
[2023-02-13] MEDS: SACUBITRIL/VALSARTAN 24-26 MG TABLET PO SCH ×2 (08:31→21:54)
[2023-02-13] MEDS: NYSTATIN 15 GM POWDER BOTTLE TP SCH ×2 (08:35→22:25)
[2023-02-13] MEDS: BUMETANIDE 0.25 MG/ML 4 ML VIAL IVP SCH ×2 (11:24→21:54)
[2023-02-13] MEDS: AMIODARONE HCL 200 MG TABLET PO SCH (11:25)
[2023-02-13] MEDS: ATORVASTATIN CALCIUM 20 MG TABLET PO SCH (21:54)
[2023-02-13] MEDS: CefTRIAXone 1 GM/DEXTROSE 50 ML IV SCH (21:56)
[2023-02-13] MEDS: SOD FERRIC GLUC COMPLX/SUCROSE 125 MG in SODIUM CHLORIDE 0.9% 100 ML IV SCH (23:56)
[2023-02-14] MEDS: HYDROCODONE/ACETAMINOPHEN 5-325 MG TABLET PO PRN ×4 (05:36→20:37)
[2023-02-14 05:41] VITALS: BP 135/51
[2023-02-14 07:42] VITALS: BP 133/60
[2023-02-14] MEDS: SACUBITRIL/VALSARTAN 24-26 MG TABLET PO SCH ×2 (09:59→20:26)
[2023-02-14] MEDS: METOPROLOL SUCCINATE 25 MG ER TABLET PO SCH (09:59)
[2023-02-14] MEDS: EMPAGLIFLOZIN 25 MG TABLET PO SCH (10:00)
[2023-02-14] MEDS: FEBUXOSTAT 40 MG TABLET PO SCH (10:00)
[2023-02-14] MEDS: APIXABAN 5 MG TABLET PO SCH ×2 (10:00→20:26)
[2023-02-14] MEDS: AMIODARONE HCL 200 MG TABLET PO SCH (10:00)
[2023-02-14] MEDS: BUMETANIDE 0.25 MG/ML 4 ML VIAL IVP SCH ×2 (10:01→20:26)
[2023-02-14] MEDS: GABAPENTIN 300 MG CAPSULE PO SCH (10:01)
[2023-02-14] MEDS: NYSTATIN 15 GM POWDER BOTTLE TP SCH ×2 (10:02→20:27)
[2023-02-14] MEDS: DOXYCYCLINE HYCLATE 100 MG TABLET PO SCH ×2 (10:04→20:26)
[2023-02-14 11:04] VITALS: BP 102/50
[2023-02-14 16:16] VITALS: BP 108/59
[2023-02-14] MEDS: SEVELAMER CARBONATE 800 MG TABLET PO SCH (17:59)
[2023-02-14] MEDS: CefTRIAXone 1 GM/DEXTROSE 50 ML IV SCH (20:25)
[2023-02-14] MEDS: ATORVASTATIN CALCIUM 20 MG TABLET PO SCH (20:27)
[2023-02-14 20:31] VITALS: BP 110/53
[2023-02-14] MEDS ORDERED: SODIUM CHLORIDE 0.9% 250 ML IV ONE (20:39)
[2023-02-14] MEDS ORDERED: HYDROmorphone HCL 2 MG/ML SYRINGE IVP ONE (21:45)
[2023-02-15] VITALS (7 sets, daily range): BP systolic 90–112; BP diastolic 56–70
[2023-02-15] MEDS: NYSTATIN 15 GM POWDER BOTTLE TP SCH ×2 (08:56→21:00)
[2023-02-15] MEDS: EMPAGLIFLOZIN 25 MG TABLET PO SCH (08:57)
[2023-02-15] MEDS: AMIODARONE HCL 200 MG TABLET PO SCH (08:57)
[2023-02-15] MEDS: FEBUXOSTAT 40 MG TABLET PO SCH (08:57)
[2023-02-15] MEDS: APIXABAN 5 MG TABLET PO SCH ×2 (08:57→21:00)
[2023-02-15] MEDS: BUMETANIDE 0.25 MG/ML 4 ML VIAL IVP SCH ×2 (08:57→21:00)
[2023-02-15] MEDS: GABAPENTIN 300 MG CAPSULE PO SCH (08:57)
[2023-02-15] MEDS: DOXYCYCLINE HYCLATE 100 MG TABLET PO SCH ×2 (08:57→21:00)
[2023-02-15] MEDS: SEVELAMER CARBONATE 800 MG TABLET PO SCH ×3 (08:57→18:12)
[2023-02-15] MEDS: HYDROCODONE/ACETAMINOPHEN 5-325 MG TABLET PO PRN (08:58)
[2023-02-15] MEDS: SACUBITRIL/VALSARTAN 24-26 MG TABLET PO SCH ×2 (08:58→21:00)
[2023-02-15] MEDS: METOPROLOL SUCCINATE 25 MG ER TABLET PO SCH (09:00)
[2023-02-15 11:44] LABS: CALCIUM, TOTAL 9.7 mg/dL (8.8-10.5); CREATININE 3.39 mg/dL (0.60-1.30)
[2023-02-15] MEDS: CefTRIAXone 1 GM/DEXTROSE 50 ML IV SCH (21:00)
[2023-02-15] MEDS: ATORVASTATIN CALCIUM 20 MG TABLET PO SCH (21:00)
[2023-02-16] VITALS (7 sets, daily range): BP systolic 99–127; BP diastolic 49–64
[2023-02-16] MEDS ORDERED: HYDROmorphone HCL 2 MG/ML SYRINGE IVP ONE
[2023-02-16 07:28] LABS: CREATININE 3.12 mg/dL (0.60-1.30); POTASSIUM 4.5 mmol/L (3.5-5.1)
[2023-02-16 07:29] LABS: CALCIUM, TOTAL 9.8 mg/dL (8.8-10.5)
[2023-02-16] MEDS: SACUBITRIL/VALSARTAN 24-26 MG TABLET PO SCH ×2 (09:40→20:18)
[2023-02-16] MEDS: GABAPENTIN 300 MG CAPSULE PO SCH (09:40)
[2023-02-16] MEDS: APIXABAN 5 MG TABLET PO SCH ×2 (09:40→20:19)
[2023-02-16] MEDS: METOPROLOL SUCCINATE 25 MG ER TABLET PO SCH (09:41)
[2023-02-16] MEDS: EMPAGLIFLOZIN 25 MG TABLET PO SCH (09:41)
[2023-02-16] MEDS: FEBUXOSTAT 40 MG TABLET PO SCH (09:41)
[2023-02-16] MEDS: DOXYCYCLINE HYCLATE 100 MG TABLET PO SCH ×2 (09:41→20:19)
[2023-02-16] MEDS: SEVELAMER CARBONATE 800 MG TABLET PO SCH ×3 (09:41→17:43)
[2023-02-16] MEDS: BUMETANIDE 0.25 MG/ML 4 ML VIAL IVP SCH ×2 (09:41→20:19)
[2023-02-16] MEDS: AMIODARONE HCL 200 MG TABLET PO SCH (09:41)
[2023-02-16] MEDS: NYSTATIN 15 GM POWDER BOTTLE TP SCH ×2 (09:42→20:20)
[2023-02-16] MEDS: HYDROCODONE/ACETAMINOPHEN 5-325 MG TABLET PO PRN ×2 (09:58→20:18)
[2023-02-16] MEDS: ATORVASTATIN CALCIUM 20 MG TABLET PO SCH (20:19)
[2023-02-16] MEDS: CefTRIAXone 1 GM/DEXTROSE 50 ML IV SCH (20:21)
[2023-02-17 00:04] VITALS: BP 107/52
[2023-02-17] MEDS: HYDROCODONE/ACETAMINOPHEN 5-325 MG TABLET PO PRN ×4 (05:53→23:10)
[2023-02-17 06:38] VITALS: BP 112/65
[2023-02-17 07:14] LABS: CALCIUM, TOTAL 9.9 mg/dL (8.8-10.5); CREATININE 3.04 mg/dL (0.60-1.30); POTASSIUM 3.6 mmol/L (3.5-5.1)
[2023-02-17 07:32] VITALS: BP 98/62
[2023-02-17] MEDS: AMIODARONE HCL 200 MG TABLET PO SCH (08:51)
[2023-02-17] MEDS: DOXYCYCLINE HYCLATE 100 MG TABLET PO SCH ×2 (08:51→21:08)
[2023-02-17] MEDS: SEVELAMER CARBONATE 800 MG TABLET PO SCH ×3 (08:51→18:10)
[2023-02-17] MEDS: APIXABAN 5 MG TABLET PO SCH ×2 (08:51→21:08)
[2023-02-17] MEDS: METOPROLOL SUCCINATE 25 MG ER TABLET PO SCH (08:51)
[2023-02-17] MEDS: SACUBITRIL/VALSARTAN 24-26 MG TABLET PO SCH ×2 (08:51→21:08)
[2023-02-17] MEDS: EMPAGLIFLOZIN 25 MG TABLET PO SCH (08:52)
[2023-02-17] MEDS: BUMETANIDE 0.25 MG/ML 4 ML VIAL IVP SCH ×2 (08:52→21:08)
[2023-02-17] MEDS: FEBUXOSTAT 40 MG TABLET PO SCH (08:52)
[2023-02-17] MEDS: NYSTATIN 15 GM POWDER BOTTLE TP SCH ×2 (08:52→21:08)
[2023-02-17] MEDS: GABAPENTIN 300 MG CAPSULE PO SCH (08:52)
[2023-02-17] MEDS ORDERED: AcetaZOLAMIDE 250 MG TABLET PO ONE (10:15)
[2023-02-17 11:39] VITALS: BP 113/65
[2023-02-17 16:10] VITALS: BP 109/60
[2023-02-17 20:16] VITALS: BP 107/52
[2023-02-17] MEDS: CefTRIAXone 1 GM/DEXTROSE 50 ML IV SCH (21:07)
[2023-02-17] MEDS: ATORVASTATIN CALCIUM 20 MG TABLET PO SCH (21:08)
[2023-02-18 00:12] VITALS: BP 102/65
[2023-02-18] MEDS: HYDROCODONE/ACETAMINOPHEN 5-325 MG TABLET PO PRN ×2 (03:33→08:07)
[2023-02-18 05:41] VITALS: BP 104/62
[2023-02-18 07:11] LABS: CALCIUM, TOTAL 10.2 mg/dL (8.8-10.5); CREATININE 2.96 mg/dL (0.60-1.30); POTASSIUM 3.9 mmol/L (3.5-5.1)
[2023-02-18] MEDS: BUMETANIDE 0.25 MG/ML 4 ML VIAL IVP SCH (08:06)
[2023-02-18] MEDS: SEVELAMER CARBONATE 800 MG TABLET PO SCH ×2 (08:06→11:50)
[2023-02-18] MEDS: EMPAGLIFLOZIN 25 MG TABLET PO SCH (08:10)
[2023-02-18] MEDS: AMIODARONE HCL 200 MG TABLET PO SCH (08:10)
[2023-02-18] MEDS: APIXABAN 5 MG TABLET PO SCH (08:10)
[2023-02-18] MEDS: GABAPENTIN 300 MG CAPSULE PO SCH (08:10)
[2023-02-18] MEDS: METOPROLOL SUCCINATE 25 MG ER TABLET PO SCH (08:11)
[2023-02-18] MEDS: FEBUXOSTAT 40 MG TABLET PO SCH (08:11)
[2023-02-18] MEDS: NYSTATIN 15 GM POWDER BOTTLE TP SCH (08:11)
[2023-02-18] MEDS: DOXYCYCLINE HYCLATE 100 MG TABLET PO SCH (08:11)
[2023-02-18] MEDS: SACUBITRIL/VALSARTAN 24-26 MG TABLET PO SCH (08:12)
[2023-02-18 08:24] VITALS: BP 128/48
[2023-02-18] MEDS ORDERED: CEFX2I IV (11:48)
[2023-02-18] MEDS ORDERED: DOXY-354 PO (11:49)
[2023-02-18] MEDS ORDERED: NYST30CR9 TP (11:52)
[2023-02-18 12:28] VITALS: BP 100/57
[2023-02-18] MEDS ORDERED: BUMETANIDE 1 MG TABLET PO SCH (21:00)
== END 2023-02-18 14:30 | DRG 291 ==
LOC: EMS 08:15 → AHU 10:57 → 5S 18:04
PROVIDERS: ADMIT Internal Medicine; ATTEND Internal Medicine
PROC: 4B02XTZ Measurement of Cardiac Defibrillator, External Approach (ICD-10-PCS; principal; 2023-01-29)
PROC: 05H933Z Insertion of Infusion Device into Right Brachial Vein, Percutaneous Approach (ICD-10-PCS; 2023-01-30)
PROC: 05HA33Z Insertion of Infusion Device into Left Brachial Vein, Percutaneous Approach (ICD-10-PCS; 2023-02-10)
DX: I13.0 Hypertensive heart and chronic kidney disease with heart failure and stage 1 through stage 4 chronic kidney disease, or unspecified chronic kidney disease (principal); I50.23 Acute on chronic systolic (congestive) heart failure; E87.0 Hyperosmolality and hypernatremia; E87.3 Alkalosis; N17.9 Acute kidney failure, unspecified; N18.4 Chronic kidney disease, stage 4 (severe); Z68.43 Body mass index [BMI] 50.0-59.9, adult; I20.0 Unstable angina; Z20.822 Contact with and (suspected) exposure to COVID-19; I42.9 Cardiomyopathy, unspecified; E66.01 Morbid (severe) obesity due to excess calories; E11.22 Type 2 diabetes mellitus with diabetic chronic kidney disease; N50.89 Other specified disorders of the male genital organs; E11.40 Type 2 diabetes mellitus with diabetic neuropathy, unspecified; E87.6 Hypokalemia; I48.0 Paroxysmal atrial fibrillation; R31.29 Other microscopic hematuria; E78.5 Hyperlipidemia, unspecified; N45.1 Epididymitis; R33.9 Retention of urine, unspecified; F12.90 Cannabis use, unspecified, uncomplicated; D63.1 Anemia in chronic kidney disease; E61.1 Iron deficiency; G47.33 Obstructive sleep apnea (adult) (pediatric); Z88.8 Allergy status to other drugs, medicaments and biological substances; Z79.899 Other long term (current) drug therapy; Z79.84 Long term (current) use of oral hypoglycemic drugs; Z95.810 Presence of automatic (implantable) cardiac defibrillator; Z79.01 Long term (current) use of anticoagulants; Z98.52 Vasectomy status; Z82.49 Family history of ischemic heart disease and other diseases of the circulatory system; Z83.3 Family history of diabetes mellitus
CPT/HCPCS: 36245; 36569; 71045; 76770; 76870; 76937; 80048; 80053; 80061; 81001; 81002; 81003; 82550; 82570; 82728; 82962; 83036; 83540; 83550; 83735; 83880; 84100; 84156; 84166; 84300; 84439; 84443; 84484; 84540; 85025; 85610; 85730; 87086; 87186; 93005; 93306; 93970; 97110; 97116; 97162; 97530; 99291; C8924; J0696; J1170; J2270; J2916; J3480; J3490; J7040; J7050; J7060; P9046; Q9967; 36415-L1; 36415-TC